=== PATIENT | male | born 1955 | race Caucasian/White ===

== ENCOUNTER 2018-05-08 15:25 | Outpatient (REF) | payer OTHER, SELFPAY ==
[2018-05-08 22:43] LABS: ALT 33 U/L (12-78); AST 24 U/L (15-37); Albumin 4.3 g/dL (3.4-5.0); Alkaline Phosphatase 83 U/L (46-116); Anion Gap 8.2 mmol/L (3-11); BUN 14 mg/dL (7-18); Bilirubin, Total 0.6 mg/dL (0.2-1.0); CO2 30.8 mmol/L (21.0-32.0); CREATININE 0.71 mg/dL (0.70-1.30); Calcium 9.1 mg/dL (8.5-10.1); Chloride 105 mmol/L (98-107); Glucose 95 mg/dL (70-100); Potassium 3.6 mmol/L (3.5-5.1); Sodium 144 mmol/L (136-145)
== END 2018-05-08 15:45 ==
LOC: NCHCN 15:25
PROVIDERS: Visit Provider Nurse Practitioner Family
DX: R74.0 Nonspecific elevation of levels of transaminase and lactic acid dehydrogenase [LDH] (principal); E87.6 Hypokalemia; E87.0 Hyperosmolality and hypernatremia; I10 Essential (primary) hypertension
CPT/HCPCS: 80053

== ENCOUNTER 2020-12-18 09:14 | Outpatient (REF) | payer MEDICARE, SELFPAY ==
[2020-12-18 13:29] LABS: Calculated LDL 116 mg/dL (<100); Cholesterol 181 mg/dL (<200); HDL Cholesterol 48 mg/dL (40-60); Triglyceride 87 mg/dL (<150)
== END 2020-12-18 09:15 | disposition home or self-care (01) ==
LOC: NCHCN 09:14
PROVIDERS: Visit Provider Nurse Practitioner Family
DX: I10 Essential (primary) hypertension (principal)
CPT/HCPCS: 80061

== ENCOUNTER 2022-07-16 12:29 | Outpatient (REF) | payer MEDICARE, SELFPAY ==
[2022-07-16 15:02] LABS: ALT 25 U/L (16-63); AST 21 U/L (15-37); Albumin 4.3 g/dL (3.4-5.0); Alkaline Phosphatase 85 U/L (46-116); Anion Gap 10.3 mmol/L (3-11); BUN 13 mg/dL (7-18); Bilirubin, Total 0.6 mg/dL (0.2-1.0); CO2 28.7 mmol/L (21.0-32.0); CREATININE 0.7 mg/dL (0.70-1.30); Calcium 8.9 mg/dL (8.5-10.1); Calculated LDL 136 mg/dL (<100); Chloride 102 mmol/L (98-107); Cholesterol 199 mg/dL (<200); Estimated GFR 100.37 (mL/min/1.73m2); Glucose 97 mg/dL (74-106); HDL Cholesterol 49 mg/dL (40-60); Potassium 3.6 mmol/L (3.5-5.1); Sodium 141 mmol/L (136-145); Triglyceride 73 mg/dL (<150)
== END 2022-07-16 12:30 | disposition home or self-care (01) ==
LOC: NCHCN 12:29
PROVIDERS: Visit Provider Nurse Practitioner Family
DX: I10 Essential (primary) hypertension (principal); Z00.00 Encounter for general adult medical examination without abnormal findings; Z12.5 Encounter for screening for malignant neoplasm of prostate
CPT/HCPCS: 80053; 80061; 82306; 84153

== ENCOUNTER 2022-09-17 00:20 | Outpatient (CLI) | payer MEDICARE, SELFPAY ==
--- NOTE | 2022-09-17 08:00 | DI.US_ITS ---
Exam(s) US AAA SCREENING EXAM: US AAA SCREENING CLINICAL HISTORY: CARDIOVASCULAR SCREENING, Z13.6 COMPARISON: US RENAL ULTRASOUND(P) from 10/26/2017 FINDINGS: No evidence of significant abdominal aortic aneurysm. The maximum diameter of the abdominal aorta is 2.7 cm, proximally. Below this level the aorta tapers normally with the distal aorta exhibiting diameter of 2 cm. Visualized common iliac arteries both exhibit diameters of 1.3 cm. IMPRESSION: No evidence of significant abdominal aortic aneurysm. DATA REPOSITORY:
== END 2022-09-17 00:40 ==
LOC: DI 00:21
PROVIDERS: Visit Provider Nurse Practitioner Family
DX: Z13.6 Encounter for screening for cardiovascular disorders (principal)
CPT/HCPCS: 76706

== ENCOUNTER → 2023-04-21 02:07 | Outpatient (CLI) | payer MEDICARE, SELFPAY ==
--- NOTE | 2023-04-21 | ETT_ITS ---
APPROVED REPORT Exam: Exercise Treadmill Patient Location: Out-Patient Room/Bed: Stress Nurse: Marley Spring RN Ordering Provider:CRISTIANO ARROYO, Contact Number: [phone] BMI: 23.80 Baseline Rhythm: Sinus Bradycardia Comment: T wave changes inferior leads Indications: Chest pain Medical History Medical History: Chest pain, HTN, ASCVD Cardiac Medications: Vitamin B complex, vitamin C Allergies: Penicillin, naproxen Cardiac Risk Factors: Family hx, HTN, former smoker Previous Cardiac Procedures: None Pretest Chest Pain Characteristics: None Exercise History: Physically active Physical Disabilities: None Lung Sounds: Clear to auscultation Heart Sounds: Bradycardia Stress Test Details Test: Exercise stress testing was performed using a Abel protocol. Rest Stress HR Resting HR Supine: 53 bpm Max Heart Rate (APMHR): 151 bpm Resting HR Standin bpm Target HR (85% APMHR): 128 bpm Max HR Achieved: 130 bpm % of APMHR: 86 Recovery HR: 68 bpm HR response to stress: Normal HR response to stress BP Resting BP Supine: 178/88 mmHg Resting BP Standin/88 mmHg Max BP: 188/82 mmHg Recovery BP: 160/84 mmHg BP response to stress: Normal blood pressure response to stress. ECG Resting ECG: Sinus Bradycardia Ectopy: None Stress ECG: Sinus Tachycardia ST Change: No significant ST segment changes noted Arrhythmia: None Recovery ECG: Sinus Rhythm Recovery ST Change: No significant ST segment changes noted Recovery Arrhythmia: Rare PVC Clinical Reason for Termination: Target HR Achieved, Fatigue Stress Symptoms: Fatigue Exercise duration: 09 min39 sec Highest Stage Reached: Stage 3: 3.4 mph at 14% grade. Exercise capacity: 11.23 METs Angina Score: None Hartmann Treadmill Score: 9.5 Rate Pressure Product: [id number] Stress ECG Conclusion 1. Resting electrocardiogram showed minor inferior ST T abnormalities 2. Patient exercised on the Abel protocol and completed a workload of 11.23 METS 3. Normal heart rate and blood pressure response to exercise. Patient achieved 86% predicted heart r ate for age 4. There was no electrocardiographic evidence of myocardial ischemia 5. There were no significant dysrhythmias Hartmann Treadmill Score is 9.5 which is Low risk. Stress Test Summary STAGE Time (mins) Speed (mph) Grade (%) HR BP SpO2 SYMPTOMS METS Supine 53 178/88 Standing 56 182/88 1 3 1.7 10 91 170/72 97 4.5 2 6 2.5 12 97 168/74 93 7 3 9 3.4 14 129 10 1 min recovery 103 188/72 97 3 min recovery 75 168/88 98 6 min recovery 68 160/84
--- NOTE | 2023-04-21 | DI.RAD_ITS ---
Exam(s) XR SHOULDER RT COMPLETE 2+V EXAM: XR SHOULDER RT COMPLETE 2+V CLINICAL HISTORY: RT SHOULDER PAIN, M25.511. TECHNIQUE: 2D digital imaging was performed. COMPARISON: No exams were available for comparison FINDINGS: Five views. No evidence of fracture or dislocation nor diminution of the subacromial space and there are no soft tissue calcifications the subacromial space. There is a E 4 x 3 mm calcific density in the superior aspect of the AC joint which is related to degenerative changes in this joint. This does not cause i mpingement upon subacromial space. The glenohumeral joint appears unremarkable. Coracoid process is intact. IMPRESSION: Mild findings as above. DATA REPOSITORY: RADIATION DOSE DELIVERED:
== END ==
PROVIDERS: PCP Nurse Practitioner Family; Visit Provider Nurse Practitioner Family
DX: R07.9 Chest pain, unspecified (principal)
CPT/HCPCS: 93016; 93018; 73030; 93017

== ENCOUNTER 2023-05-19 11:19 | Emergency (ER) | payer MEDICARE, SELFPAY ==
--- NOTE | 2023-05-19 11:15 | DI.RAD_ITS ---
Exam(s) XR SHOULDER RT COMPLETE 2+V EXAM: XR SHOULDER RT COMPLETE 2+V CLINICAL HISTORY: fall, right shoulder pain. TECHNIQUE: 2D digital imaging was performed. COMPARISON: CR XR SHOULDER RT COMPLETE 2+V from 04/21/2023 FINDINGS: Five views: No evidence of fracture or dislocation or abnormal soft tissue calcifications. Subacromial space is not diminished. Glenohumeral joint appears unremarkable. Mild degenerative changes in the AC joint, including a calcific density in the superior aspect of the AC joint. There is a small osteophytic r idge on the undersurface of the acromion which may be causing an element of impingement upon the rota tor cuff mechanism. Bone density normal. No osseous lesions. Clavicle appears unremarkable. Coracoid process is intact . IMPRESSION: No acute osseous findings. Other findings as above DATA REPOSITORY: RADIATION DOSE DELIVERED:
[2023-05-19 11:22] VITALS: BP 160/82; PULSE 55; RESP 18; TEMP 36.8; O2SAT 99
[2023-05-19] MEDS: Acetaminophen 500 MG TAB 1000 MG PO (11:44)
[2023-05-19] MEDS: Ibuprofen 800 MG TAB PO (11:44)
--- NOTE | 2023-05-19 12:04 | ED.GENADUL_ITS ---
Discharge Plan Disposition Patient Disposition: Home Discharge Details Chief Complaint: Orthopedic Clinical Impression: Sprain of shoulder, right Primary Care Provider: Bee Koroma ED Provider: Cristian Mcdonough Home Meds and New Rx's Prescriptions: No Action multivitamin [Daily Multi-Vitamin] 1 EACH tablet 1 ea PO DAILY diphenhydramine HCl [Benadryl] 25 MG capsule 25 mg PO PRN epinephrine 0.3 MG/0.3 ML auto-injector 0.3 mg IM PRN Discharge Instructions Instructions: Shoulder Pain (ED) Additional Instructions: At this time your x-ray shows no evidence of fracture or dislocation. I do suspect that the bursa fluid sacs around your shoulder have been irritated, as well as some of your chronic arthritis and chronic rotator cuff deficits as well. Please take Tylenol as needed for pain. You can also take Motrin on top of this if need be. A helpful treatment is to also apply Voltaren/diclofenac gel to your shoulder to help with any pain or soreness that you may have. We have given you a sling to use only for comfort as needed. If you always have the sling on you will develop notable restriction in your shoulder and develop potential frozen shoulder syndrome. Please continue range of motion exercises of your shoulder moving your shoulder slowly and gently in all directions 2-3 times per day to prevent any frozen shoulder syndrome. If you notice any worsening of your symptoms, or any new symptoms such as vomiting, diarrhea, fever, chills, shortness of breath, chest pain, numbness, weakness, or fainting , please return immediately to the emergency department for reevaluation. Please follow up with your medicaid collection specialist at [facility] as soon as possible for reassessment and reevaluation. As always, it was a pleasure participating in your medical care today. Referrals: Bee Koroma [Primary Care Provider] - Medical Decision Making 67-year-old male with a past medical history of chronic right shoulder pain for which she is currently seeing the [facility] with scheduled MRI in the next few weeks, presents today for evaluation of right shoulder pain. Patient states that today he was walking outside he slipped on a rock and landed onto his right shoulder. He did not hit his head or lose consciousness. He denies any other trauma. Pain is present in his shoulder immediately upon fall, it hurts with all movements. He has not taken any Tylenol or Motrin for pain. He denies any numbness tingling or weakness. He denies any chest pain. No shortness of breath. No pain with breathing. No other complaints at this time. No other modifying factors. Exam demonstrates some restriction in motion for the shoulder which is difficult to determine if this is acute versus chronic. There is pain with most all movements, and mild tenderness over the greater tuberosity of the proximal humerus. Suspect bursal irritation and trauma, contusion of the bone, but also potential fracture. Rotator cuff injury potential on top of his chronic pathology. We will treat with Tylenol and Motrin, get an x-ray to rule out fracture, monitor closely and reassess. Symptoms inconsistent with dislocation. 12:09 PM X-ray negative for acute process. Arthritis and chronic components are noted. Patient has a sling. Will recommend discharge with close follow-up with medicaid collection specialist at [facility]. Recommend topical Voltaren gel and Tylenol as needed. Recommend continued range of motion exercises to prevent frozen shoulder syndrome. Discussed red flags for which to return. I have extensively reviewed the treatment plan and discharge instructions with the patient and their family. I have addressed all patient concerns at this time. The patient and family was made aware of what symptoms to monitor for that would warrant a return to the emergency department. Discussed the plan with the patient and family, they demonstrate verbal understanding and agreement with our assessment and plan at this time. The documentation in this chart was dictated using [employer] dictation software. Please excuse any dictation errors. FINDINGS: Five views: No evidence of fracture or dislocation or abnormal soft tissue calcifications. Subacromial space is not diminished. Glenohumeral joint appears unremarkable. Mild degenerative changes in the AC joint, including a calcific density in the superior aspect of the AC joint. There is a small osteophytic ridge on the undersurface of the acromion which may be causing an element of impingement upon the rotator cuff mechanism. Bone density normal. No osseous lesions. Clavicle appears unremarkable. Corac oid process is intact. IMPRESSION: No acute osseous findings. Other findings as above HPI General Date/Time Provider Initiated Documentation: 05/19/23 11:26 . HPI Narrative: 67-year-old male with a past medical history of chronic right shoulder pain for which she is currently seeing the [facility] with scheduled MRI in the next few weeks, presents today for evaluation of right shoulder pain. Patient states that today he was walking outside he slipped on a rock and landed onto his right shoulder. He did not hit his head or lose consciousness. He denies any other trauma. Pain is present in his shoulder immediately upon fall, it hurts with all movements. He has not taken any Tylenol or Motrin for pain. He denies any numbness tingling or weakness. He denies any chest pain. No shortness of breath. No pain with breathing. No other complaints at this time. No other modifying factors. Related Data Home Medications Medication Instructions Recorded Confirmed diphenhydramine HCl 25 mg capsule 25 mg PO PRN 04/01/14 04/26/14 (Benadryl) epinephrine 0.3 mg/0.3 mL 0.3 mg IM PRN 04/01/14 04/26/14 injection, auto-injector multivitamin (Daily Multi-Vitamin 1 ea PO DAILY 04/01/14 04/26/14 tablet) Allergies Allergy/AdvReac Type Severity Reaction Status Date / Time venom-honey bee Allergy Intermediate hives Unverified 04/26/14 08:41 [bee venom (honey bee)] naproxen [From Naprosyn] Allergy Unknown Unverified 04/26/14 08:41 Penicillins Allergy Unknown rash Unverified 04/26/14 08:41 General Stated Complaint: Orthopedic MARY: 4 Review of Systems All systems reviewed & are unremarkable except as noted in HPI and below PFSH All Active Problems (Updated 05/19/23 @ 12:13 by Cristian Mcdonough DO) Sprain of shoulder, right (Acute) Social History Smoking/Tobacco Use Status: Former Tobacco Use Smoking risk assessment performed?: Yes Drug use: Never Do you feel safe at home: Yes Do you feel safe in your relationship?: Yes Exam Narrative Exam Narrative: 1.Const: Well-nourished, Well-developed, appearing stated age 2.Eyes: PERRL, no conjunctival injection, and symmetrical lids. 3.ENT: Atraumatic external nose and ears. Moist MM. Neck: Symmetric, trachea midline, No thyromegaly. 4.CVS: +S1/S2, No murmurs or gallops. Peripheral pulses 2+ and equal in all extremities. Brisk capillary refill in all extremities. 5.RESP: Unlabored respiratory effort. Clear to auscultation bilaterally. No wheezes rales or rhonchi 6.GI: Soft, Nontender/Nondistended, No hepatosplenomegaly. No guarding or rebound. 7.MSK: Right shoulder: No tenderness over the clavicle, or the AC joint. Mild tenderness over the humeral head and the greater humeral tuberosity. Notable restriction in motion with movement of the shoulder. Mild pain with external and internal rotation, restriction of motion with posterior movement with some pain. Mild restriction with anterior movement. Pain and mild restriction with abduction. No restriction or pain with adduction. 8.Skin: Warm, Dry. No rashes or lesions. 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 Sensation grossly intact, no focal neurologic deficits. 10.Psych: (AAO) x3. Appropriate mood and affect Course Vital Signs Vital signs: Vital Signs Temperature 36.8 C 05/19/23 11:22 Pulse 55 L 05/19/23 11:22 Respiratory Rate 18 05/19/23 11:22 Blood Pressure 160/82 H 05/19/23 11:22 Pulse Oximetry 99 05/19/23 11:22 Temperature 36.8 C 05/19/23 11:22 Temperature Source Oral 05/19/23 11:22 Pulse 55 L 05/19/23 11:22 Respiratory Rate 18 05/19/23 11:22 Respiratory Effort Normal, Non-Labored 05/19/23 11:44 Blood Pressure 160/82 H 05/19/23 11:22 Blood Pressure Position Sitting 05/19/23 11:22 Pulse Oximetry 99 05/19/23 11:22 Oxygen Delivery Method Room Air 05/19/23 11:22 Oxygen Flow Rate 0 05/19/23 11:22 Pain Level 5 05/19/23 11:22
== END 2023-05-19 12:31 | disposition home or self-care (01) ==
PROVIDERS: Emergency Provider Student in an Organized Health Care Education/Training Program; PCP Nurse Practitioner Family
DX: S43.401A Unspecified sprain of right shoulder joint, initial encounter (principal); W19.XXXA Unspecified fall, initial encounter
CPT/HCPCS: 99283; 73030

== ENCOUNTER 2023-06-02 02:22 | Outpatient (CLI) | payer MEDICARE, SELFPAY ==
--- NOTE | 2023-06-02 | DI.MRI_ITS ---
Exam(s) MR UPPER JOINT RT WO EXAM: MR UPPER JOINT RT WO CLINICAL HISTORY: ? ROTATOR CUFF TEAR, PAIN, M85.101. TECHNIQUE: Multiplanar multisequence MRI was performed. COMPARISON: CR XR SHOULDER RT COMPLETE 2+V from 05/19/2023 FINDINGS: BONES: There is no fracture or contusion pattern. JOINTS: There are moderate degenerative changes seen at the acromioclavicular joint. There findings suggestive of mild superior subluxation of the humeral head relative to the glenoid. TENDONS: Supraspinatus: There is a complete tear of the supraspinatus tendon with retraction almost to the lev el of the acromioclavicular joint. Infraspinatus: Unremarkable. Subscapularis: Unremarkable. Teres Minor: Unremarkable. Biceps and [place]: Unremarkable. MUSCLES: There is mild fatty atrophy of the teres minor muscle. GLENOID LABRUM: Unremarkable on this noncontrast examination. SOFT TISSUES: Unremarkable. LIGAMENTS: Unremarkable. OTHER: There is fluid in the subacromial subdeltoid bursa consistent with a rotator cuff tear. IMPRESSION: 1. Complete tear of the supraspinatus tendon with retraction almost to the level of the acromioclavic ular joint. 2. Mild superior subluxation of the humeral head relative to the glenoid. 3. Mild fatty atrophy of the teres minor muscle. 4. Degenerative changes seen of the acromioclavicular joint. DATA REPOSITORY:
== END 2023-06-02 02:42 ==
LOC: DI 02:23
PROVIDERS: PCP Nurse Practitioner Family; Visit Provider Orthopaedic Surgery
DX: M75.121 Complete rotator cuff tear or rupture of right shoulder, not specified as traumatic (principal)
CPT/HCPCS: 73221

== ENCOUNTER 2023-09-15 08:16 | Outpatient (CLI) | payer MEDICARE, OTHER, SELFPAY ==
--- NOTE | 2023-09-15 08:15 | RT.EKG_ITS ---
APPROVED REPORT Exam: Resting ECG Reason for Exam: chest pain Patient Location: O HR:58 bpm ECG Measurements Heart Rate 58 AXIS WA 156 P -8 QRSd 103 QRS -23 QT 433 T -16 QTc 426 Conclusion Sinus rhythm...normal P axis, V-rate 50- 99 Left ventricular hypertrophy...multiple voltage criteria Borderline T abnormalities, inferior leads...T flat/neg, II III aVF I have reviewed and interpreted ECG and agree with software generated interpretation.
== END 2023-09-15 08:17 | disposition home or self-care (01) ==
LOC: DI.CARD 08:17
PROVIDERS: PCP Nurse Practitioner Family; Visit Provider Internal Medicine Interventional Cardiology
DX: R07.9 Chest pain, unspecified (principal)
CPT/HCPCS: 93010

== ENCOUNTER → 2023-09-15 08:46 | Outpatient (BNVA) | payer MEDICARE, OTHER, SELFPAY | PROVIDERS: PCP Nurse Practitioner Family; Referring Provider Nurse Practitioner Family; Visit Provider Internal Medicine Interventional Cardiology | DX: R07.89 Other chest pain (principal); I51.7 Cardiomegaly; E78.5 Hyperlipidemia, unspecified; I10 Essential (primary) hypertension | CPT/HCPCS: 93005; 99213 ==

== ENCOUNTER 2024-03-08 11:25 | Outpatient (REF) | payer MEDICARE, OTHER, SELFPAY ==
[2024-03-08 15:24] LABS: ALT 42 U/L (16-63); AST 28 U/L (15-37); Albumin 4.4 g/dL (3.4-5.0); Alkaline Phosphatase 76 U/L (46-116); Anion Gap 8.3 mmol/L (3-11); BUN 11 mg/dL (7-18); Bilirubin, Total 1.05 mg/dL (0.2-1.0); CO2 29.7 mmol/L (21.0-32.0); CREATININE 0.9 mg/dL (0.70-1.30); Calculated LDL 123 mg/dL (<100); Chloride 106 mmol/L (98-107); Cholesterol 188 mg/dL (<200); Estimated GFR 91.88 (mL/min/1.73m2); Glucose 103 mg/dL (74-106); HDL Cholesterol 51 mg/dL (40-60); Potassium 4.2 mmol/L (3.5-5.1); Sodium 144 mmol/L (136-145); Total Protein 6.9 g/dL (6.4-8.2); Triglyceride 71 mg/dL (<150)
[2024-03-08 23:07] LABS: PSA, Screening 0.9 ng/mL (<=6.5)
== END 2024-03-08 11:26 | disposition home or self-care (01) ==
LOC: NCHCN 11:25
PROVIDERS: PCP Nurse Practitioner Family; Visit Provider Nurse Practitioner Family
DX: I25.10 Atherosclerotic heart disease of native coronary artery without angina pectoris (principal); N39.0 Urinary tract infection, site not specified; Z12.5 Encounter for screening for malignant neoplasm of prostate
CPT/HCPCS: 80053; 80061; 84153

== ENCOUNTER 2024-10-11 16:30 | Outpatient (REF) | payer MEDICARE, OTHER, SELFPAY ==
[2024-10-11 20:58] LABS: Bilirubin Negative (Negative); Blood Negative (Negative); Clarity Clear (Clear); Glucose Negative (Negative); Ketones Negative (Negative); Leukocyte Esterase Negative (Negative); Nitrite Negative (Negative); Urobilinogen 0.2 mg/dL (Up to 0.2)
[2024-10-11 21:15] LABS: Microalb ug/mg Crea 11.5 ug/mg Cr
== END 2024-10-11 16:31 | disposition home or self-care (01) ==
LOC: NCHCN 16:30
PROVIDERS: PCP Nurse Practitioner Family; Visit Provider Nurse Practitioner Family
DX: I10 Essential (primary) hypertension (principal)
CPT/HCPCS: 81003; 82043; 82570

== ENCOUNTER 2024-10-29 01:20 | Outpatient (CLI) | payer MEDICARE, OTHER, SELFPAY ==
--- NOTE | 2024-10-29 | DI.MRI_ITS ---
Exam(s) MR CERVICAL SPINE WO EXAM: MR CERVICAL SPINE WO CLINICAL HISTORY: M54.2 Cervicalgia TECHNIQUE: Multiplanar multisequence MRI of the cervical spine was performed without intravenous con trast. COMPARISON: No exams were available for comparison FINDINGS: BONES: Vertebral body heights are maintained. Alignment is normal. Bone marrow signal intensity is wi thin normal limits. CERVICAL CORD: Craniovertebral junction is unremarkable. The cervical cord is normal size and signal intensity. SOFT TISSUES: Unremarkable. C2-3: No disc herniation or bulge is identified. No evidence of neural foraminal narrowing. No signi ficant central canal stenosis. C3-4: Mild loss of disc height. Small endplate osteophytes projecting posterolaterally. No disc her niation or bulge is identified. Bilateral neural foraminal narrowing. No significant central canal st enosis. C4-5: Loss of disc height. Circumferential disc osteophytes. No disc herniation or bulge is identif ied. Bilateralneural foraminal narrowing. No significant central canal stenosis. C5-6: Loss of disc height. Concentric disc osteophytes..Mild bilateral neural foraminal narrowing. N o significant central canal stenosis. C6-7: Loss of disc height. Concentric disc osteophytes. No evidence of neural foraminal narrowing. No significant central canal stenosis. C7-T1: No disc herniation or bulge is identified. No evidence of neural foraminal narrowing. No signi ficant central canal stenosis. IMPRESSION: Degenerative disc changes and facet degenerative changes combine to produce bilateral foraminal narro wing greatest at C3-4 and C4-5. No evidence of disc herniation or central canal stenosis. DATA REPOSITORY:
== END 2024-10-29 01:40 ==
LOC: DI 01:21
PROVIDERS: PCP Nurse Practitioner Family; Visit Provider Nurse Practitioner Family
DX: M50.021 Cervical disc disorder at C4-C5 level with myelopathy (principal); M99.61 Osseous and subluxation stenosis of intervertebral foramina of cervical region
CPT/HCPCS: 72141

== ENCOUNTER 2024-11-22 11:51 | Outpatient (CLI) | payer MEDICARE, OTHER, SELFPAY ==
--- NOTE | 2024-11-22 06:00 | DI.RAD_ITS ---
Exam(s) XR PAIN CLINIC CERVICAL SP 2V EXAM: XR PAIN CLINIC CERVICAL SP 2V CLINICAL HISTORY: DX: Cervical Spondylosis TECHNIQUE: 2D and realtime digital imaging was performed. CONTRAST MATERIAL: Refer to procedure report. COMPARISON: No exams were available for comparison FINDINGS: Fluoroscopy was provided for Dr. Eastman during the performance of a cervical medial branch block. Ple ase refer to the procedure report for complete details. Ka,r=5.19 mGy IMPRESSION: RADIATION DOSE DELIVERED: 0.0 0.0 0
[2024-11-22 11:59] VITALS: BP 159/83; PULSE 56; RESP 20; TEMP 36.6; O2SAT 99
[2024-11-22 12:16] VITALS: PULSE 61; RESP 18; O2SAT 97
[2024-11-22 12:17] VITALS: BP 177/75; PULSE 57; PULSE 59; RESP 19; O2SAT 97
[2024-11-22 12:20] VITALS: PULSE 62; RESP 20; O2SAT 98
[2024-11-22 12:30] VITALS: BP 170/73; PULSE 57
--- NOTE | 2024-11-22 12:30 | PDOC.PAIN_ITS ---
Date of service: 11/22/24 Time of Service: 12:30 Pain Managment Procedure Note Procedure Note Procedure Note: PROCEDURE NOTE LEFT SIDED CERVICAL MEDIAL BRANCH BLOCKS Date of Service: November 22, 2024 Patient: Evangelista Pimentel Provider: Melania Eastman DO, MPH Evangelistaagueda Pimentel has been referred to the [facility] for cervical medial branch blocks. Pre-operative diagnosis: Cervical Spondylosis without Myelopathy ICD-10 M47.812 Post-operative diagnosis: Same Pre-procedure pain: VAS= 4/10 COMMENTS: I previously evaluated him yesterday. [place] interviewed and the medical records were reviewed. There were no medical, pharmacologic, radiographic or other structural contraindications to attempting fluoroscopically guided local anesthetic cervical medial branch blocks. Risks and potential side effects were discussed. I also discussed the potential benefit(s) of the procedure with Evangelista, and voiced concerns were addressed. After Evangelista was completely informed about the procedure, the printed consent form was signed. A standard time-out procedure was performed. Evangelista was placed in the lateral decubitus position on the fluoroscopy table with the effected side up. Automated blood pressure cuff and pulse oximeter were applied. The skin entry points for approaching the anatomic target points of the segmental medial branches of Left C3,C4,C5 were identified with fluoroscopy and marked. The skin at the target site area was thoroughly prepared with Chlorhexadine. The skin was then draped. Next, a 25 gauge 3.5 spinal needle was placed under fluoroscopic guidance down on to the target point (the articular pillar) for each respective segmental medial branch. Position was confirmed in A/P and lateral views. Aspiration revealed no blood or clear fluid. Next, 0.25ml of omnipaque 240 was injected at each level. No contrast f ollowing a vascular or neural pattern was visualized under continuous fluoroscopy. Next, 0.25 ml of preservative-free 0.5% bupivicaine was injected at each level. (49 mls of Omnipaque was wasted) There was no unusual discomfort expressed by Evangelista. The needles were withdrawn without difficulty. Evangelista was observed and was without hemodynamic, neurologic, or allergic reactions.? Fluoroscopic images were digitally archived. Evangelista's vital signs were stable throughout the procedure and were as recorded in the docflowsheet by the nursing staff. Provacative testing using the Modified Nettles's facet loading test Left side Directly before the block VAS (0-10) = 4/10 Five minutes after the block VAS (0-10) = 0/10 Percentage relief obtained with this diagnostic block 100% Any improved physical functioning directly after the blocks? Able to move his neck much better Follow up plans and appointments were discussed with Evangelista. Evangelista was instructed to keep careful note of how the usual pain was modified by these injections. Specifically, to keep a pain diary for the next 4 hours using a numeric pain scale of 0-10 and report these results. Post procedure instruction was given as documented in the nursing documentation and having met discharge criteria, the patient was [facility] from the [facility]. Based on the medial branches blocked today, if Evangelista has adequate relief and we are able to proceed to radiofrequency ablation, the treatment should result in the denervation of the Left C3-C4 and C4-C5 facet joints. We would expect to denervate a total of 2 facets during the radiofrequency ablation. COMMENTS: No apparent complications. Post-procedure pain: VAS= 0/10 Evangelista will call back with 0-4 hour post-procedure pain scores. I personally performed the entire procedure. MELANIA EASTMAN DO, MPH ABPM&R-subspecialty board certification in Pain Medicine [facility] Coding Conscious Sedation used for procedure: No CPT Codes: CMBB (includes Fluoro) Cervical/Thoracic, 2nd lvl - [id number] ([id number] ~G) left CMBB (includes Fluoro) Cervical/Thoracic, single lvl - [id number] ([id number] ~G) left Additional Codes: Date of Service (93211) Date of service: 11/22/24
[2024-11-22 12:33] VITALS: BP 186/92; PULSE 56
[2024-11-22] MEDS: Omnipaque 240 MG/ML 50 ML BTL IJ (12:38)
[2024-11-22] MEDS: Nerve Block Tray 1 EACH MC (12:38)
[2024-11-22] MEDS: Bupivacaine 0.5% Pres-Free 10 ML VIAL IJ (12:38)
== END 2024-11-22 11:52 | disposition home or self-care (01) ==
PROVIDERS: PCP Nurse Practitioner Family; Visit Provider Preventive Medicine Occupational Medicine
DX: M54.2 Cervicalgia (principal); M47.812 Spondylosis without myelopathy or radiculopathy, cervical region
CPT/HCPCS: 64490; 64491; 72040; J0665; Q9967

== ENCOUNTER 2024-12-06 11:46 | Outpatient (CLI) | payer MEDICARE, OTHER, SELFPAY ==
[2024-12-06 12:06] VITALS: BP 170/83; PULSE 50; RESP 18; TEMP 36.6; O2SAT 98
[2024-12-06 12:25] VITALS: PULSE 59; O2SAT 96
[2024-12-06 12:26] VITALS: BP 165/76; PULSE 57; RESP 17; O2SAT 96
[2024-12-06 12:30] VITALS: PULSE 54; RESP 28; O2SAT 98
[2024-12-06 12:31] VITALS: BP 159/54; PULSE 54; RESP 19; O2SAT 97
--- NOTE | 2024-12-06 12:38 | PDOC.PAIN ---
Date of service: 12/06/24 Time of Service: 12:38 Pain Managment Procedure Note Procedure Note Procedure Note: PROCEDURE NOTE LEFT SIDED CERVICAL MEDIAL BRANCH BLOCKS Date of Service: December 06, 2024 Patient: Evangelista Pimentel Provider: Leonard Eastman DO, MPH Evangelistaagueda Pimentel has been [facility] to the [facility] for cervical medial branch blocks. Pre-operative diagnosis: Cervical Spondylosis without Myelopathy ICD-10 M47.812 Post-operative diagnosis: Same Pre-procedure pain: VAS= 7/10 COMMENTS: He did well with the first CMBB Evangelista?was interviewed and the medical records were reviewed. There were no medical, pharmacologic, radiographic or other structural contraindications to attempting fluoroscopically guided local anesthetic cervical medial branch blocks. Risks and potential side effects were discussed. I also discussed the potential benefit(s) of the procedure with Evangelista, and voiced concerns were addressed. After Evangelista was completely informed about the procedure, the printed consent form was signed. A standard time-out procedure was performed. Evangelista was placed in the lateral decubitus position on the fluoroscopy table with the effected side up. Automated blood pressure cuff and pulse oximeter were applied. The skin entry points for approaching the anatomic target points of the segmental medial branches of Left C3,C4,C5 were identified with fluoroscopy and marked. The skin at the target site area was thoroughly prepared with Chlorhexadine. The skin was then draped. Next, a 25 gauge 3.5 spinal needle was placed under fluoroscopic guidance down on to the target point (the articular pillar) for each respective segmental medial branch. Position was confirmed in A/P and lateral views. Aspiration revealed no blood or clear fluid. Next, 0.25ml of omnipaque 240 was injected at each level. No contrast following a vascular or neural pattern was visualized under continuous fluoroscopy. Next, 0.25 ml of preservative-free 0.5% bupivicaine was injected at each level. (49 mls of Omnipaque was wasted) There was no unusual discomfort expressed by Evangelista. The needles were withdrawn without difficulty. Evangelista was observed and was without hemodynamic, neurologic, or allergic reactions.? Fluoroscopic images were digitally archived. Evangelista's vital signs were stable throughout the procedure and were as recorded in the docflowsheet by the nursing staff. Provacative testing using the Modified Nettles's facet loading test Left side Directly before the block VAS (0-10) = 7/10 Five minutes after the block VAS (0-10) = 0/10 Percentage relief obtained with this diagnostic block 100% Any improved physical functioning directly after the blocks? Able to move his neck with minimal pain Follow up plans and appointments were discussed with Evangelista. Evangelista was instructed to keep careful note of how the usual pain was modified by these injections. Specifically, to keep a pain diary for the next 4 hours using a numeric pain scale of 0-10 and report these results. Post procedure instruction was given as documented in the nursing documentation and having met discharge criteria, the patient was [facility] from the [facility]. Based on the medial branches blocked today, if Evangelista has adequate relief and we are able to proceed to radiofrequency ablation, the treatment should result in the denervation of the Left C3-C4 and C4-C5 facet joints. We would expect to denervate a total of 2 facets during the radiofrequency ablation. COMMENTS: No apparent complications. Post-procedure pain: VAS= 0/10 Evangelista will call back with 0-4 hour post-procedure pain scores. I personally performed the entire procedure. LEONARD EASTMAN DO, MPH ABPM&R-subspecialty board certification in Pain Medicine [facility] Coding Conscious Sedation used for procedure: No CPT Codes: CMBB (includes Fluoro) Cervical/Thoracic, 2nd lvl - 57646 ([id number] ~G) CMBB (includes Fluoro) Cervical/Thoracic, single lvl - 70174 ([id number] ~G) Additional Codes: Date of Service (71752) Date of service: 12/06/24
[2024-12-06] MEDS: Omnipaque 240 MG/ML 50 ML BTL IJ (12:44)
[2024-12-06] MEDS: Nerve Block Tray 1 EACH MC (12:44)
[2024-12-06] MEDS: Bupivacaine 0.5% Pres-Free 10 ML VIAL IJ (12:45)
--- NOTE | 2024-12-06 12:47 | DI.RAD_ITS ---
Exam(s) XR PAIN CLINIC CERVICAL SP 2V EXAM: XR PAIN CLINIC CERVICAL SP 2V CLINICAL HISTORY: DX: Cervical Spondylosis TECHNIQUE: 2D and realtime digital imaging was performed. CONTRAST MATERIAL: Refer to procedure report. COMPARISON: No exams were available for comparison FINDINGS: Fluoroscopy was provided for Dr. Eastman during the performance of a lumbar cervical medial branch bloc k. Please refer to the procedure report for complete details. Ka,r=3.88 mGy IMPRESSION: RADIATION DOSE DELIVERED: 0.0 0.0 0
== END 2024-12-06 11:47 | disposition home or self-care (01) ==
LOC: PC 11:46
PROVIDERS: PCP Nurse Practitioner Family; Visit Provider Preventive Medicine Occupational Medicine
DX: M47.812 Spondylosis without myelopathy or radiculopathy, cervical region (principal); M54.2 Cervicalgia
CPT/HCPCS: 64490; 64491; 72040; J0665; Q9967

== ENCOUNTER → 2024-12-13 10:31 | Outpatient (BNVA) | payer MEDICARE, OTHER, SELFPAY | PROVIDERS: PCP Nurse Practitioner Family; Referring Provider Nurse Practitioner Family; Visit Provider Physical Therapy Assistant | DX: Z12.11 Encounter for screening for malignant neoplasm of colon (principal); I10 Essential (primary) hypertension; I51.7 Cardiomegaly ==

== ENCOUNTER 2024-12-24 08:10 | Day surgery (SDC) | payer MEDICARE, OTHER, SELFPAY ==
--- NOTE | 2024-12-23 18:11 | W.ANESPRE ---
General Info Date of Service Date Performed: 12/24/24 Height: 5 ft 7 in Weight: 75.466 kg Body Mass Index (BMI): 26.0 Surgical Procedure: Operation Date: 12/24/24 09:50 Proposed Procedure Side Surgeon jeny Solis MD Meds Allergies and Home Medications Allergies Allergy/AdvReac Type Severity Reaction Status Date / Time venom-honey bee (bee venom Allergy Intermediate hives Verified 12/24/24 08:42 (honey bee)) Penicillins Allergy Unknown Anaphylaxis Verified 12/24/24 08:42 Home Medication ?Medication ?Instructions ?Recorded epinephrine 0.3 mg/0.3 mL 0.3 mg IM PRN 04/01/14 injection, auto-injector multivitamin (Daily Multi-Vitamin 1 ea PO DAILY 04/01/14 tablet) ascorbic acid (vitamin C) 1,000 mg 1 g PO DAILY 09/07/23 capsule vitamin B complex (B 1 tab PO DAILY 09/07/23 Complex-Vitamin B12 tablet) omega 3 850 kq-bqr-tdj-fish oil 1 cap PO DAILY 10/24/24 1,400 mg capsule turmeric 400 mg capsule 1,000 mg PO DAILY 10/24/24 Current Visit Medications: Current Medications Generic Name Dose Route Start Last Admin Trade Name Freq PRN Reason Stop Dose Admin Ringer's Solution 1,000 mls @ 80 mls/hr 12/24/24 06:00 IV 01/20/25 23:59 INFUSION NORMA IV Miscellaneous Supplies 1 each 12/24/24 06:00 Iv Access IV 01/20/25 23:59 DIRECTED NORMA Sodium Chloride 0 ml 12/24/24 06:00 Normal Saline Flush 10 Ml Syr IV 01/20/25 23:59 PRN PRN Sodium Chloride 0 ml 12/24/24 06:00 Normal Saline 10 Ml Vial IJ 01/20/25 23:59 DIRECTED PRN Sterile Water 0 ml 12/24/24 06:00 Water,Injection,Sterile 10 Ml Vial IJ 01/20/25 23:59 DIRECTED PRN PFSH Active Problems Active Problems: Problem Status Onset Code Cervical spondylosis without myelopathy Acute M47.812 LVH (left ventricular hypertrophy) Acute I51.7 Chest pain Acute R07.9 HLD (hyperlipidemia) Acute E78.5 HTN (hypertension) with goal to be determined Acute I10 Medical History Medical History Disorder of nasal sinus Age-related nuclear cataract, bilateral Essential hypertension Pain, joint, knee, right Atherosclerosis of coronary artery without angina pectoris Family history of malignant neoplasm of digestive organ 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 Allergy to honey bee venom [place] node Idiopathic osteoarthritis Pain, joint, shoulder, right Lower urinary tract infection Electrocardiogram abnormal Cough Neck pain Overweight Surgical History Surgical History History of thumb surgery Tendon repair History of colonoscopy with polypectomy (~04/26/14) S/P rotator cuff repair History of eyelid surgery Tobacco Smoking/Tobacco Use Status: Former Tobacco Use Alcohol Alcohol Intake: current Alcohol intake frequency: 0-2 drinks per day Alcohol type: beer Substance Use Substance use: Never Substance use type: does not use Vital Signs and Lab Results Vital Signs Most Recent Vital Signs in EMR: Temp Pulse Resp BP Pulse Ox 36.1 C L 52 L 16 162/82 H 99 12/24/24 08:33 12/24/24 08:33 12/24/24 08:33 12/24/24 08:33 12/24/24 08:33 Lab Results Blood Type / Crossmatch: No Data to Display Complete Blood Count: No Data to Display Complete Metabolic Panel: No Data to Display Liver Function Panel: No Data to Display Coagulation Panel: No Data to Display Cardiac Panel: No Data to Display Arterial Blood Gas: No Data to Display Venous Blood Gas: No Data to Display Pancreas Panel: No Data to Display Thyroid Panel: No Data to Display Infectious Disease: No Data to Display Blood Cultures: No Data to Display Toxicology Panel: No Data to Display Anesthesia Assessment and Plan Anesthesia History Personal History: No History of Anesthesia Complications Family History: No Family History of Anesthesia Complications Exercise Tolerance Exercise Tolerance: Metabolic Equivalents>4 Cardiac & Pulmonary Exam Cardiac Exam: Normal S1/S2 Heart Sounds Pulmonary Exam: Clear Bilateral Breath Sounds Implantable Cardiac Device Does patient have a Pacemaker or an ICD?: No Airway Exam Known Difficult Airway: No Mallampati Class: 3 Mouth Opening: Normal (> 3cm) Thyromental Distance: Greater than 3 cm Neck Range of Motion: Full ROM Neck Circumference: Normal Teeth Condition: Normal Dentition ASA Classification ASA Score: ASA 2 Emergency Case?: No NPO Status NPO Status: NPO Clears >2 hours, Solids >8 hours Anesthesia Plan Resuscitation Status: Full Code Anesthesia Technique: General Anesthesia Airway Planned: Natural Airway Monitors Used: Standard Monitors and SedLine Preoperative Comments:: 69 yo male for colo. Sig PMHx: HTN (no meds, herbal tea), LVH, cervical spondylosis (feels ok today), Former smoker, occasional EtOH. ECG: sinus. LVH. Stress: no ECG evidence of ischemia.
--- NOTE | 2024-12-23 19:14 | PDOC.DSDIS_ITS ---
Date of service: 12/24/24 Discharge Plan Disposition Patient Disposition: Home Condition: Good Discharge Details Reason For Visit: screening colonoscopy Attending Provider: Kwadwo Solis Primary Care Provider: Bee Koroma Home Meds and New Rx's Prescriptions: Continued omega 5-spa-gyw-fish oil 850-1,400 mg capsule 1 cap PO DAILY turmeric 400 mg capsule 1,000 mg PO DAILY multivitamin [Daily Multi-Vitamin] 1 EACH tablet 1 ea PO DAILY epinephrine 0.3 MG/0.3 ML auto-injector 0.3 mg IM PRN Patient Comments: prn vitamin B complex [B Complex-Vitamin B12] Tablet 1 tab PO DAILY ascorbic acid (vitamin C) 1,000 mg capsule 1 g PO DAILY Discontinued polyethylene glycol 3350 17 gram/dose powder 238 g PO ONCE Qty: 238 0RF Rx Instructions: take per colonoscopy instructions bisacodyl [Dulcolax (bisacodyl)] 5 mg tablet,delayed release (DR/EC) 5 mg PO ONCE Qty: 4 0RF Rx Instructions: take per colonoscopy instructions Discharge Instructions Instructions: Colon polyps, Diverticulosis (DC) Additional Instructions: Evangelista, was very nice meeting you today, and I hope you are comfortable through the procedure. Things went very smoothly. Your prep was excellent we could see everything fine. I did find, and remove 1 polyp from your rectum today. This was small in size, and none of the features are particularly worrisome to the naked eye. This polyp will be sent off for testing since they do, different types, and we use that information to help guide the timing of future colonoscopies. Incidentally, and as documented on your previous col onoscopies, you also have some diverticulosis. I will attach some basic information here about colon rectal polyps, as well as diverticulosis. If you need anything or have any questions at all, do not hesitate to ask 1. If tolerated, consume a soft, low fiber diet for 1-2 days. 2[address] Do not drive, drink alcohol, operate machinery, make critical decisions, or do activities that require coordination or balance for 24 hours. 3. Because air was put into your colon during the procedure, expelling air from your rectum (passing gas or farting) is normal. 4. You may not have a bowel movement for 1-3 days because of the colonoscopy prep. This is normal. 5. Go directly to the emergency room if you notice any of the following: Develop chills (warm to touch), or if you have a thermometer and your temperature is above 101 Difficulty breathing or difficultly swallowing Persistent vomiting Severe abdominal pain, other than gas cramps Severe chest pain Black, tarry stools Any bleeding ? exceeding one tablespoon 6. Call your physician if the site where your intravenous was started becomes red, swollen, painful, and warm to touch. 7. Your physician has reviewed your pre-procedure medications. Please continue to take those medications as previously ordered. You will be given specific information/education regarding any changes to your medications before leaving. Activity:: Activity as Tolerated Diet:: As Tolerated Discharge Orders Discharge Orders: Discharge Order (Routine); Ordered 12/23/24 Ordered By: Kwadwo Solis DS: Diagnosis Discharge Diagnosis (1) Encounter for screening colonoscopy: Status: Acute Asessment and Plan: Follow-up on polypectomy results
--- NOTE | 2024-12-23 19:16 | W.COLOREPORT ---
Date of service: 12/24/24 Time of Service: 10:23 Colonoscopy Report Date of procedure: 12/24/24 Pre-op diagnosis general: screening colonoscopy Post-op diagnosis procedure note: other (Colon polyp, diverticulosis) Procedure: colonoscopy with polypectomy Surgeon: Kwadwo Solis Anesthesia Type: General:No Airway Estimated blood loss (mL): 5 Complications: None Disposition: same day Indications: Evangelista is a 69 year old man with a fmaily history of colon cancer. He needs his next screening colonoscopy Prep: Miralax/Dulcolax Procedure Start Time: 09:51 Procedure End Time: 10:15 Retraction Time: 7 Findings: 0.25 cm flat rectal polyp; sigmoid diverticulosis Procedure Description: After the induction of anesthesia, and with the patient in left lateral decubitus position, I began by performing an external anorectal exam.? Perineum and skin were normal, as was the anal verge.? There was no evidence of external hemorrhoids.? Next, I performed a digital rectal exam.? I did not appreciate any abnormal findings.? Next, I advanced a colonoscope into the rectal vault.? I performed retroflexion.? This appeared normal. In the upper portion of the rectal vault, however, was 0.25 cm flat polyp. This was removed with cold forceps. There was minimal bleeding. Using irrigation, I then advanced the colonoscope beyond the rectal folds and into the sigmoid colon before advancing towards the cecum.? There is sigmoid diverticulosis.? The scope was noted to be in the cecum by identification of the ileocecal valve and appendiceal orifice.? I then began withdrawing the colonoscope using repeated irrigation as necessary for full evaluation of the colonic mucosa. ?Once the scope was withdrawn to the level of the rectum, great care was taken to examine portions of the rectal folds.? The previous polypectomy site was hemostatic. Finally, the scope was withdrawn and the patient was brought to the same-day surgery recovery unit as the anesthetic wore off. ?The findings and instructions were shared with the patient prior to discharge. [place] Bowel Prep [place] Bowel Prep Right Colon: 3 Left Colon: 3 Transverse Colon: 3 Total Score: 9
[2024-12-24 08:33] VITALS: BP 162/82; PULSE 52; RESP 16; TEMP 36.1; O2SAT 99
[2024-12-24] MEDS: Lactated Ringers 1,000 ML 80 ML IV (09:00)
[2024-12-24 09:22] VITALS: BMI 26.0
--- NOTE | 2024-12-24 09:53 | BOWEL_PTH ---
PATIENT: Evangelista Pimentel LOC: [facility] U#:[id number] AGE/SX: 69/M ROOM: RE12/24/[address]: Kwadwo Solis MD : [id number] BED: DIS: 12/24/2024 SPEC #: [id number] RECD: 12/24/24 12:45 STATUS: LESLY REQ #: [id number] MINH: 12/24/24 09:[address]: Kwadwo Solis DEPT: Surgical Specimen RECD BY: Shelby Swartz ENTERED: 12/24/24 12:46 SP TYPE: Bowel OTHR DR: Bee Koroma Tissues: 1 - BIOPSY BOWEL Procedures: GROSS AND MICRO LEVEL 4 Comments: [id number]
[2024-12-24 10:21] VITALS: BP 144/76; PULSE 51; RESP 16; TEMP 36.5; O2SAT 98
--- NOTE | 2024-12-24 10:27 | W.ANESPOSTOP ---
Postoperative Evaluation Date, Time and Location Date Performed: 12/24/24 Time Performed: 10:27 Patient Location: Day Surgery Unit Vital Signs Most Recent Imported Vital Signs: Most Recent Vital Signs Temp Pulse Resp BP Pulse Ox 36.5 C 51 L 16 144/76 H 98 12/24/24 10:21 12/24/24 10:21 12/24/24 10:21 12/24/24 10:21 12/24/24 10:21 Pain Score Most Recent Pain Score: Most Recent Pain Score Pain Level 0 12/24/24 10:21 Assessment Mental Status: Awake (Alert & Oriented to Patient Baseline) Airway and Respiratory Function: Patent airway with normal (patient baseline) respiratory exam and Patient has been admitted and is receiving care as an inpatient Cardiovascular Function: Hemodynamically Stable Hydration Status: Adequately Hydrated Nausea & Vomiting: No Nausea or Vomiting Pain: Pt. Denies Any Pain Peripheral Nerve Block: Patient did not receive a nerve block
[2024-12-24 10:49] VITALS: BP 132/84; PULSE 50; RESP 16; TEMP 36.5; O2SAT 97
== END 2024-12-24 11:00 | disposition home or self-care (01) ==
LOC: SUR 08:10
PROVIDERS: PCP Nurse Practitioner Family; Visit Provider Surgery
PROC: 0DJD8ZZ Inspection of Lower Intestinal Tract, Via Natural or Artificial Opening Endoscopic (ICD-10-PCS; CPT 45378; principal; 2024-12-24 09:45)
DX: Z12.11 Encounter for screening for malignant neoplasm of colon (principal); Z85.038 Personal history of other malignant neoplasm of large intestine; K57.30 Diverticulosis of large intestine without perforation or abscess without bleeding; D12.8 Benign neoplasm of rectum
CPT/HCPCS: 45380; 88305; J2704

== ENCOUNTER 2025-04-16 13:38 | Outpatient (CLI) | payer MEDICARE, OTHER, SELFPAY ==
--- NOTE | 2025-04-16 | DI.RAD_ITS ---
Exam(s) XR CHEST 2V PA LATERAL EXAM: XR CHEST 2V PA LATERAL CLINICAL HISTORY: COUGH R05.9 TECHNIQUE: 2D digital imaging was performed. Two views. COMPARISON: No exams were available for comparison FINDINGS: HEART: Normal size. Aorta: Not dilated. PULMONARY VASCULATURE: Normal. MEDIASTINUM: Unremarkable. LUNGS: Clear. PLEURAL SPACE: No pleural effusion or pneumothorax. BONE:Mild midthoracic compression fracture. SOFT TISSUES: Unremarkable. IMPRESSION: No acute abnormality. DATA REPOSITORY: RADIATION DOSE DELIVERED:
== END 2025-04-16 13:58 ==
LOC: DI 13:38
PROVIDERS: PCP Nurse Practitioner Family; Visit Provider Nurse Practitioner Family
DX: R05.9 Cough, unspecified (principal)
CPT/HCPCS: 71046

== ENCOUNTER 2025-05-02 00:39 | Outpatient (CLI) | payer MEDICARE, OTHER, SELFPAY ==
[2025-05-02] MEDS: Methacholine 100 MG VIAL IH (16:58)
[2025-05-02] MEDS: Inhaler, Assist Device 1 EACH MC (16:59)
[2025-05-02] MEDS: Albuterol HFA 18 GM 200 PUFF INH IH (16:59)
--- NOTE | 2025-05-06 08:59 | W.PFT ---
Date of service: 05/02/25 Time of Service: 14:52 Pulmonary Function Test Result Indications: Cough Impression 1. Good patient effort was noted. ATS standards for reproducibility were met. 2. Normal spirometry. 3. At 16 mg/mL of methacholine, there was only a 10% fall in FEV1. 4. TLC was normal. No evidence of restrictive lung disease 5. DLCO was normal indicating normal alveolar gas exchange Conclusion: - normal pulmonary function testing - negative methacholine challenge test
== END 2025-05-02 00:40 | disposition home or self-care (01) ==
LOC: RT 00:39
PROVIDERS: PCP Nurse Practitioner Family; Visit Provider Internal Medicine Pulmonary Disease
DX: R05.9 Cough, unspecified (principal)
CPT/HCPCS: 94070; 94726; 94729; 95070; J7674